=== PATIENT | female | born 1940 | race Caucasian/White ===

== ENCOUNTER 2018-11-28 07:25 | Inpatient (IN) ==
[2018-11-28] MEDS ORDERED: MYLANTA/LIDO VISC 2:1 300 ML BOTTLE SWISH/SWAL PRN (08:47)
[2018-11-28] MEDS ORDERED: diphenhydrAMINE CAP 25 MG CAPSULE PO PRN (08:47)
[2018-11-28] MEDS ORDERED: guaiFENesin 200 MG/10 ML UDCUP PO PRN (08:47)
[2018-11-28] MEDS ORDERED: PROMETHAZINE INJ 25 MG in SODIUM CHLORIDE 0.9% 50 ML IV PRN (08:47)
[2018-11-28] MEDS ORDERED: ONDANSETRON 4 MG/2 ML VIAL IV PRN (08:47)
[2018-11-28] MEDS ORDERED: MAGNESIUM HYDROXIDE SUSP 30 ML UDCUP PO PRN (08:47)
[2018-11-28] MEDS ORDERED: ALUMINUM/MAGNES/SIMETH MAX STR 30 ML UDCUP PO PRN (08:47)
[2018-11-28] MEDS ORDERED: ALPRAZolam 0.25 MG TABLET PO PRN (08:47)
[2018-11-28] MEDS ORDERED: ACETAMINOPHEN 325 MG TABLET PO PRN (08:47)
[2018-11-28] MEDS ORDERED: LACTULOSE 20 GM/30 ML UDCUP PO PRN (08:47)
[2018-11-28] MEDS ORDERED: MYLANTA/LIDO VISC 2:1 300 ML BOTTLE SWISH/SPIT PRN (08:47)
[2018-11-28] MEDS ORDERED: TEMAZEPAM 7.5 MG CAPSULE PO PRN (08:47)
[2018-11-28] MEDS ORDERED: LOPERAMIDE 2 MG CAPSULE PO PRN ×2 (08:47)
[2018-11-28] MEDS ORDERED: DEXAMETHASONE 4 MG TABLET PO SCH (09:00)
[2018-11-28] MEDS ORDERED: INFLUENZA VIRUS VACCINE 0.5 ML SYRINGE IM ONE (09:01)
[2018-11-28] MEDS ORDERED: PNEUMOCOCCAL VACCINE (13 VALENT) 0.5 ML SYRINGE IM ONE (09:01)
[2018-11-28 09:16] LABS: Eosinophils # 0.1 10*3/uL (0.0-0.87); Eosinophils % 4.3 % (0.00-10.9); Immature Granulocytes % 0.4 %; Immature Granulocytes Absolute 0.01 #; Lymphocytes # 0.9 10*3/uL (1.4-4.0); Lymphocytes % 34.4 % (21.3-54.2); Mean Corpuscular HGB Conc 33.3 GM/DL (32-36); Mean Corpuscular Volume 93.4 FL (87-102); Mean Platelet Volume 8.9 FL (9.6-12.0); Monocytes % 23.7 % (1.7-12.7); Neutrophils % 37.2 % (38.7-73.9); Platelet Count 122 T/CUMM (130-400); Red Blood Count 2.57 MC/CUMM (3.8-5.5); White Blood Count 2.5 T/CUMM (4-12)
[2018-11-28 09:35] LABS: Band Neutrophils 1 % (0-10); Eosinophils 5 % (0-10); Lymphocytes 30 % (20-55); Segmented Neutrophils 48 % (50-85); Total Cells Counted 100
[2018-11-28 09:36] LABS: Hypochromasia 1+; Ovalocytes Slight; Platelet Estimate Normal
[2018-11-28 09:44] LABS: Total Protein 6.5 G/DL (6.4-8.3)
[2018-11-28 09:46] LABS: Albumin 2.5 G/DL (3.4-5.0); Bilirubin,Total 0.4 MG/DL (0.2-1.0); Calcium 7.7 MG/DL (8.5-10.1); Osmolality,Calculated 274.7 MOS/KG (273-304); Total Protein 6.3 G/DL (6.4-8.3)
[2018-11-28] MEDS: FLUDROCORTISONE 0.1 MG TABLET PO SCH ×2 (09:52→21:33)
[2018-11-28] MEDS: MIDODRINE 2.5 MG TABLET PO SCH ×2 (09:53→21:33)
[2018-11-28] MEDS: DRONABINOL 2.5 MG CAPSULE PO SCH ×2 (09:56→21:45)
[2018-11-28 10:46] LABS: Immuno Free Light Chain Kappa 3.02 MG/DL (0.33-1.94)
[2018-11-28 10:47] LABS: Immuno Free Light Chain Lambda 13.81 MG/DL (0.57-2.63); Immuno Free Light Chain Ratio 0.22 MG/DL (0.26-1.65)
[2018-11-28] MEDS: POTASSIUM CHLORIDE 20 MEQ TABLET PO SCH (21:33)
[2018-11-29] MEDS: LEVOTHYROXINE 50 MCG TABLET PO SCH (07:16)
[2018-11-29] MEDS: DRONABINOL 2.5 MG CAPSULE PO SCH (09:32)
[2018-11-29] MEDS: POTASSIUM CHLORIDE 20 MEQ TABLET PO SCH ×2 (09:32→20:40)
[2018-11-29] MEDS: MIDODRINE 2.5 MG TABLET PO SCH ×2 (09:40→20:41)
[2018-11-29] MEDS: FLUDROCORTISONE 0.1 MG TABLET PO SCH ×2 (09:40→20:41)
[2018-11-29] MEDS ORDERED: SODIUM CHLORIDE 0.9% 1,000 ML IV PRN (10:28)
[2018-11-29] MEDS: MEGESTROL ES 125 MG/ML 30 ML/BOTTLE PO SCH (12:38)
[2018-11-29] MEDS: SIMVASTATIN 20 MG TABLET PO SCH (12:38)
[2018-11-29] MEDS: NIZATIDINE 150 MG PO SCH (20:41)
[2018-11-30] MEDS: LEVOTHYROXINE 50 MCG TABLET PO SCH (06:09)
[2018-11-30 06:32] LABS: Basophils # 0.1 10*3/uL (0.0-0.2); Basophils % 1.2 % (0.0-0.8); Eosinophils # 0.2 10*3/uL (0.0-0.87); Hematocrit 33.6 VOL% (35.7-47.0); Immature Granulocytes Absolute 0.42 #; Lymphocytes # 0.8 10*3/uL (1.4-4.0); Lymphocytes % 19.6 % (21.3-54.2); Mean Corpuscular HGB Conc 34.8 GM/DL (32-36); Mean Corpuscular Volume 88.2 FL (87-102); Mean Platelet Volume 10.2 FL (9.6-12.0); Monocytes % 13.4 % (1.7-12.7); NRBC # 0.05 10*3/uL; Neutrophils % 50.8 % (38.7-73.9); Platelet Count 130 T/CUMM (130-400)
[2018-11-30 06:46] LABS: Hemoglobin 11.7 GM/DL (12.0-16.0); Red Blood Count 3.81 MC/CUMM (3.8-5.5); White Blood Count 4.2 T/CUMM (4-12)
[2018-11-30 06:54] LABS: Calcium 7.1 MG/DL (8.5-10.1); Osmolality,Calculated 271.8 MOS/KG (273-304)
[2018-11-30 06:58] LABS: Band Neutrophils 4 % (0-10); Eosinophils 4 % (0-10); Hypochromasia 1+; Lymphocytes 23 % (20-55); Nucleated Red Blood Cells 1 (0-5); Platelet Estimate Normal; Segmented Neutrophils 53 % (50-85); Total Cells Counted 100
[2018-11-30] MEDS ORDERED: MAGNESIUM SULF RIDER 2 GM in PREMIX 1 EACH IV PRN (07:27)
[2018-11-30] MEDS ORDERED: MAGNESIUM SULF RIDER 4 GM in PREMIX 1 EACH IV PRN (07:27)
[2018-11-30] MEDS: MEGESTROL ES 125 MG/ML 30 ML/BOTTLE PO SCH (08:53)
[2018-11-30] MEDS: FLUDROCORTISONE 0.1 MG TABLET PO SCH ×2 (08:53→20:36)
[2018-11-30] MEDS: POTASSIUM CHLORIDE 20 MEQ TABLET PO SCH ×2 (08:53→20:36)
[2018-11-30] MEDS: MIDODRINE 2.5 MG TABLET PO SCH ×2 (08:53→20:36)
[2018-11-30] MEDS: SIMVASTATIN 20 MG TABLET PO SCH (08:53)
[2018-11-30] MEDS ORDERED: SIMVASTATIN 20 MG TABLET PO SCH (12:00)
[2018-11-30] MEDS: NIZATIDINE 150 MG PO SCH (20:36)
[2018-12-01] MEDS: LEVOTHYROXINE 50 MCG TABLET PO SCH (06:48)
[2018-12-01 07:34] LABS: Total Protein (Chem) 6.5 G/DL (6.4-8.3)
[2018-12-01 08:55] LABS: Albumin (SPE) 3.5 G/DL (3.2-5.3); Alpha 1 (SPE) 0.2 G/DL (0.1-0.4); Alpha 1 (SPE) Rel % 3.2 %; Alpha 2 (SPE) 1.1 G/DL (0.4-1.0); Alpha 2 (SPE) Rel % 16.2 %; Beta (SPE) 0.5 G/DL (0.5-1.1); Beta (SPE) Rel % 8.1 %; Gamma (SPE) 1.2 G/DL (0.7-1.7)
[2018-12-01 08:59] LABS: Gamma (SPE) Rel % 18.5 %
[2018-12-01] MEDS: POTASSIUM CHLORIDE 20 MEQ TABLET PO SCH ×2 (10:25→20:54)
[2018-12-01] MEDS: FLUDROCORTISONE 0.1 MG TABLET PO SCH ×2 (10:26→20:54)
[2018-12-01] MEDS: MIDODRINE 2.5 MG TABLET PO SCH ×2 (10:26→20:53)
[2018-12-01] MEDS: MEGESTROL ES 125 MG/ML 30 ML/BOTTLE PO SCH (10:31)
[2018-12-01] MEDS ORDERED: ceFAZolin 1,000 MG in SYRINGE 1 EACH IV ONE (11:33)
[2018-12-01] MEDS ORDERED: POTASSIUM CHLORIDE RIDER 10 MEQ in PREMIX 1 EACH IV PRN (15:31)
[2018-12-01] MEDS: POTASSIUM CHLORIDE RIDER 10 MEQ in PREMIX 1 EACH IV PRN ×4 (15:57→22:53)
[2018-12-01] MEDS: NIZATIDINE 150 MG PO SCH (20:54)
[2018-12-02] MEDS: DEXTROSE 5% LACTATED RINGERS 1,000 ML IV SCH ×3 (01:46→20:57)
[2018-12-02 04:50] LABS: Eosinophils # 0.1 10*3/uL (0.0-0.87); Eosinophils % 3.4 % (0.00-10.9); Hemoglobin 11.1 GM/DL (12.0-16.0); Immature Granulocytes Absolute 0.37 #; Lymphocytes % 23.5 % (21.3-54.2); Mean Corpuscular HGB Conc 34.7 GM/DL (32-36); Mean Corpuscular Volume 89.9 FL (87-102); Mean Platelet Volume 10.4 FL (9.6-12.0); Monocytes % 16.4 % (1.7-12.7); Neutrophils % 46.7 % (38.7-73.9); Platelet Count 133 T/CUMM (130-400); Red Blood Count 3.56 MC/CUMM (3.8-5.5); Red Cell Distribution Width 15.4 % (9.3-17.3); White Blood Count 4.1 T/CUMM (4-12)
[2018-12-02 05:26] LABS: Calcium 6.2 MG/DL (8.5-10.1); Osmolality,Calculated 279.3 MOS/KG (273-304)
[2018-12-02] MEDS: LEVOTHYROXINE 50 MCG TABLET PO SCH (05:41)
[2018-12-02] MEDS ORDERED: ceFAZolin 1,000 MG in SYRINGE 1 EACH IV ONE ×2 (06:00→06:30)
[2018-12-02 06:59] LABS: Band Neutrophils 10 % (0-10); Eosinophils 3 % (0-10); Lymphocytes 21 % (20-55); Metamyelocytes 1 %; Myelocytes 1 %; Segmented Neutrophils 52 % (50-85); Total Cells Counted 100
[2018-12-02 07:00] LABS: Hypochromasia 1+; Microcytosis Slight; Ovalocytes Slight
[2018-12-02 07:01] LABS: Platelet Estimate Adequate
[2018-12-02] MEDS ORDERED: BUPIVACAINE MPF 0.25% 30 ML VIAL ONE (07:36)
[2018-12-02] MEDS ORDERED: HEPARIN 5,000 UNIT/1 ML VIAL ONE (07:36)
[2018-12-02] MEDS ORDERED: TISSUE ADHESIVE 1 EACH APPLICATOR TOP ONE (07:37)
[2018-12-02] MEDS ORDERED: LIDOCAINE 1% 20 ML VIAL ONE (07:37)
[2018-12-02] MEDS ORDERED: LACTATED RINGERS 1,000 ML IV SCH (08:30)
[2018-12-02] MEDS ORDERED: MIDAZOLAM 2 MG/2 ML VIAL ONE (09:34)
[2018-12-02] MEDS ORDERED: KETAMINE 500 MG/10 ML VIAL ONE (09:34)
[2018-12-02] MEDS ORDERED: MAGNESIUM SULF RIDER 2 GM in PREMIX 1 EACH IV ONE (10:44)
[2018-12-02] MEDS ORDERED: MIDODRINE 2.5 MG TABLET PO SCH (10:46)
[2018-12-02] MEDS: METOPROLOL TARTRATE 25 MG TABLET PO SCH ×2 (11:33→20:55)
[2018-12-02] MEDS: FLUDROCORTISONE 0.1 MG TABLET PO SCH ×2 (11:35→20:54)
[2018-12-02] MEDS: POTASSIUM CHLORIDE 20 MEQ TABLET PO SCH ×2 (11:36→20:54)
[2018-12-02] MEDS: MEGESTROL ES 125 MG/ML 30 ML/BOTTLE PO SCH (11:42)
[2018-12-02] MEDS: POTASSIUM CHLORIDE RIDER 20 MEQ in PREMIX 1 EACH IV PRN ×2 (14:36→17:37)
[2018-12-02] MEDS: MIDODRINE 2.5 MG TABLET PO SCH ×3 (16:50→20:55)
[2018-12-02] MEDS: NIZATIDINE 150 MG PO SCH (20:55)
[2018-12-03 04:42] LABS: Basophils % 0.5 % (0.0-0.8); Eosinophils # 0.1 10*3/uL (0.0-0.87); Eosinophils % 2.9 % (0.00-10.9); Hematocrit 33.8 VOL% (35.7-47.0); Hemoglobin 11.3 GM/DL (12.0-16.0); Immature Granulocytes Absolute 0.15 #; Lymphocytes # 0.9 10*3/uL (1.4-4.0); Lymphocytes % 24.7 % (21.3-54.2); Mean Corpuscular HGB Conc 33.4 GM/DL (32-36); Mean Corpuscular Volume 92.3 FL (87-102); Mean Platelet Volume 10.2 FL (9.6-12.0); Monocytes % 23.1 % (1.7-12.7); Neutrophils % 44.8 % (38.7-73.9); Platelet Count 153 T/CUMM (130-400); Red Blood Count 3.66 MC/CUMM (3.8-5.5); Red Cell Distribution Width 15.6 % (9.3-17.3); White Blood Count 3.8 T/CUMM (4-12)
[2018-12-03 05:08] LABS: Band Neutrophils 1 % (0-10); Eosinophils 2 % (0-10); Lymphocytes 28 % (20-55); Platelet Estimate Adequate; Segmented Neutrophils 51 % (50-85); Total Cells Counted 100
[2018-12-03 05:09] LABS: Hypochromasia 1+; Microcytosis Slight
[2018-12-03 05:18] LABS: Calcium 6.5 MG/DL (8.5-10.1); Osmolality,Calculated 280.3 MOS/KG (273-304)
[2018-12-03] MEDS: LEVOTHYROXINE 50 MCG TABLET PO SCH (05:47)
[2018-12-03] MEDS: FLUDROCORTISONE 0.1 MG TABLET PO SCH ×2 (09:11→21:14)
[2018-12-03] MEDS: MEGESTROL ES 125 MG/ML 30 ML/BOTTLE PO SCH (09:12)
[2018-12-03] MEDS: MIDODRINE 2.5 MG TABLET PO SCH ×3 (09:12→21:16)
[2018-12-03] MEDS: METOPROLOL TARTRATE 25 MG TABLET PO SCH (09:12)
[2018-12-03] MEDS: POTASSIUM CHLORIDE 20 MEQ TABLET PO SCH ×2 (09:12→21:14)
[2018-12-03] MEDS: POTASSIUM CHLORIDE RIDER 20 MEQ in PREMIX 1 EACH IV PRN (09:12)
[2018-12-03] MEDS: DEXTROSE 5% LACTATED RINGERS 1,000 ML IV SCH (10:17)
[2018-12-03] MEDS: POTASSIUM CHLORIDE RIDER 10 MEQ in PREMIX 1 EACH IV PRN (11:20)
[2018-12-03] MEDS: BISOPROLOL 5 MG TABLET PO SCH ×2 (15:25→21:14)
[2018-12-03] MEDS: NIZATIDINE 150 MG PO SCH (21:15)
[2018-12-04] MEDS: DEXTROSE 5% LACTATED RINGERS 1,000 ML IV SCH (01:36)
[2018-12-04] MEDS: LEVOTHYROXINE 50 MCG TABLET PO SCH (05:40)
[2018-12-04] MEDS: POTASSIUM CHLORIDE 20 MEQ TABLET PO SCH (08:30)
[2018-12-04] MEDS: FLUDROCORTISONE 0.1 MG TABLET PO SCH (08:31)
[2018-12-04] MEDS: BISOPROLOL 5 MG TABLET PO SCH (08:31)
[2018-12-04] MEDS: MIDODRINE 2.5 MG TABLET PO SCH (08:31)
[2018-12-04] MEDS: MEGESTROL ES 125 MG/ML 30 ML/BOTTLE PO SCH (08:33)
[2018-12-04 09:27] VITALS: BP 147/84
== END 2018-12-04 11:05 | disposition home health service (06) | DRG 982 ==
LOC: N.4E
PROVIDERS: ADMIT Specialist; ATTEND Specialist

== ENCOUNTER 2019-02-11 15:00 | Inpatient (IN) ==
[2019-02-11 16:20] LABS: Basophils % 0.2 % (0.0-0.8); Eosinophils % 0.6 % (0.00-10.9); Hematocrit 28.6 VOL% (35.7-47.0); Hemoglobin 9.3 GM/DL (12.0-16.0); Immature Granulocytes % 2.9 %; Immature Granulocytes Absolute 0.15 #; Lymphocytes # 0.7 10*3/uL (1.4-4.0); Lymphocytes % 13.4 % (21.3-54.2); Mean Corpuscular HGB Conc 32.5 GM/DL (32-36); Mean Corpuscular Volume 99.7 FL (87-102); Monocytes % 10.5 % (1.7-12.7); Neutrophils % 72.4 % (38.7-73.9); Platelet Count 201 T/CUMM (130-400); Red Blood Count 2.87 MC/CUMM (3.8-5.5); Red Cell Distribution Width 17.3 % (9.3-17.3); White Blood Count 5.2 T/CUMM (4-12)
[2019-02-11 16:47] LABS: Bilirubin,Total 0.4 MG/DL (0.2-1.0); Calcium 8.7 MG/DL (8.5-10.1); Total Protein 6.5 G/DL (6.4-8.3)
[2019-02-11] MEDS ORDERED: AZITHROMYCIN INJ 500 MG in SODIUM CHLORIDE 0.9% 250 ML IV STA (17:19)
[2019-02-11] MEDS ORDERED: cefTRIAXone 1,000 MG in SODIUM CHLORIDE 0.9% 100 ML IV STA (17:19)
[2019-02-11] MEDS ORDERED: ACETAMINOPHEN 325 MG TABLET PO PRN (19:01)
[2019-02-11] MEDS ORDERED: ONDANSETRON 4 MG/2 ML VIAL IV PRN (19:01)
[2019-02-11] MEDS ORDERED: ALBUTEROL/IPRATROPIUM 3 ML NEB RESP TX PRN (19:01)
[2019-02-11] MEDS: SODIUM CHLORIDE 0.9% 1,000 ML IV SCH (21:12)
[2019-02-12 04:57] LABS: Basophils % 0.3 % (0.0-0.8); Eosinophils # 0.1 10*3/uL (0.0-0.87); Eosinophils % 1.3 % (0.00-10.9); Hemoglobin 7.3 GM/DL (12.0-16.0); Immature Granulocytes % 2.6 %; Lymphocytes # 1.3 10*3/uL (1.4-4.0); Lymphocytes % 33.9 % (21.3-54.2); Mean Corpuscular HGB Conc 33.2 GM/DL (32-36); Mean Corpuscular Volume 99.5 FL (87-102); Monocytes % 10.4 % (1.7-12.7); NRBC # 0.02 10*3/uL; Neutrophils % 51.5 % (38.7-73.9); Red Blood Count 2.21 MC/CUMM (3.8-5.5); Red Cell Distribution Width 17.3 % (9.3-17.3); White Blood Count 3.9 T/CUMM (4-12)
[2019-02-12 05:04] LABS: Platelet Count 148 T/CUMM (130-400)
[2019-02-12 05:13] LABS: Calcium 7.9 MG/DL (8.5-10.1); Osmolality,Calculated 285.1 MOS/KG (273-304)
[2019-02-12 06:14] LABS: Atypical Lymphocytes Few; Band Neutrophils 6 % (0-10); Eosinophils 3 % (0-10); Lymphocytes 24 % (20-55); Microcytosis Slight; Segmented Neutrophils 59 % (50-85); Total Cells Counted 100
[2019-02-12 06:15] LABS: Hypochromasia 1+; Tear Drop Cells Slight
[2019-02-12 07:36] LABS: Amorphous Crystals,Urine Occasional /HPF (Few); Apearance,Urine Slightly Hazy (Clear); Bacteria,Urine Occasional /HPF (Few); Bilirubin,Urine Negative (Negative); Blood, Urine Small mg/dL (Negative); Glucose,Urine (UA) Negative (Negative); Ketones,Urine Negative (Negative); Nitrite,Urine Negative (Negative); Protein,Urine 30 MG/DL; RBC,Urine 1 /HPF (0-4); Squamous Epithelial Cell,Urine Occasional /HPF (0-10); Urine Color Yellow (Yellow); Urine Specific Gravity 1.015 (1.001-1.035); Urine Urobilinogen < 2.0 EU/DL (0.2-1.0); WBC,Urine 20 /HPF (0-6)
[2019-02-12] MEDS: RANITIDINE 150 MG TABLET PO SCH (11:07)
[2019-02-12] MEDS: BISOPROLOL 5 MG TABLET PO SCH ×2 (11:07→21:46)
[2019-02-12] MEDS: CHOLECALCIFEROL 1,000 UNIT TABLET PO SCH (11:08)
[2019-02-12] MEDS: MAGNESIUM OXIDE 400 MG TABLET PO SCH ×2 (11:08→21:46)
[2019-02-12] MEDS ORDERED: ENOXAPARIN 40 MG/0.4 ML SYRINGE SUBCUT SCH (14:00)
[2019-02-12] MEDS: PANTOPRAZOLE 40 MG TABLET PO SCH (17:38)
[2019-02-12] MEDS: MEGESTROL ES 125 MG/ML 30 ML/BOTTLE PO SCH (17:38)
[2019-02-12] MEDS: CALCIUM CARBONATE CHEW 500 MG TABLET PO SCH ×2 (17:38→21:46)
[2019-02-12] MEDS: POTASSIUM BICARBONATE PO SCH ×2 (17:41→21:15)
[2019-02-12] MEDS: CITRIC ACID PO SCH ×2 (17:41→21:15)
[2019-02-12] MEDS ORDERED: AZITHROMYCIN INJ 500 MG in SODIUM CHLORIDE 0.9% 250 ML IV SCH (19:30)
[2019-02-12] MEDS: GABAPENTIN 300 MG CAPSULE PO SCH (21:46)
[2019-02-12] MEDS: cefTRIAXone 1,000 MG in SYRINGE 1 EACH IV SCH (21:50)
[2019-02-12] MEDS: ENOXAPARIN 40 MG/0.4 ML SYRINGE SUBCUT SCH (21:52)
[2019-02-13 05:22] LABS: Basophils % 0.3 % (0.0-0.8); Eosinophils # 0.1 10*3/uL (0.0-0.87); Eosinophils % 1.6 % (0.00-10.9); Hematocrit 22.6 VOL% (35.7-47.0); Hemoglobin 7.3 GM/DL (12.0-16.0); Immature Granulocytes % 2.7 %; Lymphocytes # 1.2 10*3/uL (1.4-4.0); Lymphocytes % 32.8 % (21.3-54.2); Mean Corpuscular HGB Conc 32.3 GM/DL (32-36); Mean Corpuscular Volume 101.8 FL (87-102); Mean Platelet Volume 10.4 FL (9.6-12.0); NRBC # 0.03 10*3/uL; Neutrophils % 53.6 % (38.7-73.9); Platelet Count 154 T/CUMM (130-400); Red Blood Count 2.22 MC/CUMM (3.8-5.5); Red Cell Distribution Width 17.6 % (9.3-17.3); White Blood Count 3.7 T/CUMM (4-12)
[2019-02-13 05:49] LABS: Calcium 7.3 MG/DL (8.5-10.1); Osmolality,Calculated 288.7 MOS/KG (273-304)
[2019-02-13] MEDS: LEVOTHYROXINE 50 MCG TABLET PO SCH (06:29)
[2019-02-13] MEDS: SODIUM CHLORIDE 0.9% 1,000 ML IV SCH ×3 (08:41→12:03)
[2019-02-13] MEDS: AZITHROMYCIN 250 MG TABLET PO SCH (08:43)
[2019-02-13] MEDS: MAGNESIUM OXIDE 400 MG TABLET PO SCH ×2 (08:43→20:37)
[2019-02-13] MEDS: CALCIUM CARBONATE CHEW 500 MG TABLET PO SCH ×3 (08:43→20:38)
[2019-02-13] MEDS: BISOPROLOL 5 MG TABLET PO SCH ×2 (08:43→20:37)
[2019-02-13] MEDS: POTASSIUM BICARBONATE PO SCH ×2 (08:44→20:45)
[2019-02-13] MEDS: CITRIC ACID PO SCH ×2 (08:44→20:45)
[2019-02-13] MEDS: CHOLECALCIFEROL 1,000 UNIT TABLET PO SCH (08:44)
[2019-02-13] MEDS: MEGESTROL ES 125 MG/ML 30 ML/BOTTLE PO SCH (08:44)
[2019-02-13] MEDS: PANTOPRAZOLE 40 MG TABLET PO SCH (08:44)
[2019-02-13] MEDS: RANITIDINE 150 MG TABLET PO SCH (08:46)
[2019-02-13] MEDS ORDERED: SODIUM CHLORIDE 0.9% 1,000 ML IV PRN (14:22)
[2019-02-13] MEDS: cefTRIAXone 1,000 MG in SYRINGE 1 EACH IV SCH (20:36)
[2019-02-13] MEDS: GABAPENTIN 300 MG CAPSULE PO SCH (20:37)
[2019-02-13] MEDS: ENOXAPARIN 40 MG/0.4 ML SYRINGE SUBCUT SCH (20:38)
[2019-02-14 06:12] LABS: Eosinophils # 0.1 10*3/uL (0.0-0.87); Eosinophils % 1.8 % (0.00-10.9); Hematocrit 29.2 VOL% (35.7-47.0); Hemoglobin 9.4 GM/DL (12.0-16.0); Immature Granulocytes % 3.6 %; Immature Granulocytes Absolute 0.12 #; Lymphocytes # 0.9 10*3/uL (1.4-4.0); Lymphocytes % 25.7 % (21.3-54.2); Mean Corpuscular HGB Conc 32.2 GM/DL (32-36); Mean Platelet Volume 9.8 FL (9.6-12.0); NRBC # 0.05 10*3/uL; Neutrophils % 58.9 % (38.7-73.9); Platelet Count 139 T/CUMM (130-400); Red Blood Count 2.98 MC/CUMM (3.8-5.5); Red Cell Distribution Width 18.6 % (9.3-17.3); White Blood Count 3.3 T/CUMM (4-12)
[2019-02-14] MEDS: LEVOTHYROXINE 50 MCG TABLET PO SCH (06:30)
[2019-02-14] MEDS: SODIUM CHLORIDE 0.9% 1,000 ML IV SCH ×2 (06:30→20:31)
[2019-02-14 06:44] LABS: Calcium 7.3 MG/DL (8.5-10.1); Osmolality,Calculated 287.7 MOS/KG (273-304)
[2019-02-14] MEDS: RANITIDINE 150 MG TABLET PO SCH (09:50)
[2019-02-14] MEDS: CITRIC ACID PO SCH ×2 (09:51→20:25)
[2019-02-14] MEDS: POTASSIUM BICARBONATE PO SCH ×2 (09:51→20:25)
[2019-02-14] MEDS: MAGNESIUM OXIDE 400 MG TABLET PO SCH ×2 (09:52→20:23)
[2019-02-14] MEDS: BISOPROLOL 5 MG TABLET PO SCH ×2 (09:52→20:24)
[2019-02-14] MEDS: CHOLECALCIFEROL 1,000 UNIT TABLET PO SCH (09:52)
[2019-02-14] MEDS: AZITHROMYCIN 250 MG TABLET PO SCH (09:52)
[2019-02-14] MEDS: CALCIUM CARBONATE CHEW 500 MG TABLET PO SCH ×3 (09:52→20:24)
[2019-02-14] MEDS: PANTOPRAZOLE 40 MG TABLET PO SCH (09:53)
[2019-02-14] MEDS: MEGESTROL ES 125 MG/ML 30 ML/BOTTLE PO SCH (09:59)
[2019-02-14] MEDS: ENOXAPARIN 40 MG/0.4 ML SYRINGE SUBCUT SCH (20:23)
[2019-02-14] MEDS: GABAPENTIN 300 MG CAPSULE PO SCH (20:23)
[2019-02-14] MEDS: cefTRIAXone 1,000 MG in SYRINGE 1 EACH IV SCH (20:25)
[2019-02-15 05:15] LABS: Basophils % 0.5 % (0.0-0.8); Eosinophils # 0.1 10*3/uL (0.0-0.87); Eosinophils % 1.6 % (0.00-10.9); Hematocrit 30.4 VOL% (35.7-47.0); Hemoglobin 10.1 GM/DL (12.0-16.0); Immature Granulocytes % 3.9 %; Immature Granulocytes Absolute 0.15 #; Lymphocytes % 25.5 % (21.3-54.2); Mean Corpuscular HGB Conc 33.2 GM/DL (32-36); Mean Platelet Volume 10.3 FL (9.6-12.0); Monocytes % 10.7 % (1.7-12.7); NRBC # 0.02 10*3/uL; Neutrophils % 57.8 % (38.7-73.9); Platelet Count 148 T/CUMM (130-400); Red Cell Distribution Width 18.3 % (9.3-17.3); White Blood Count 3.8 T/CUMM (4-12)
[2019-02-15 05:48] LABS: Calcium 7.3 MG/DL (8.5-10.1)
[2019-02-15] MEDS: LEVOTHYROXINE 50 MCG TABLET PO SCH (06:30)
[2019-02-15] MEDS: CALCIUM CARBONATE CHEW 500 MG TABLET PO SCH ×3 (08:55→20:49)
[2019-02-15] MEDS: CHOLECALCIFEROL 1,000 UNIT TABLET PO SCH (08:56)
[2019-02-15] MEDS: AZITHROMYCIN 250 MG TABLET PO SCH (08:56)
[2019-02-15] MEDS: MAGNESIUM OXIDE 400 MG TABLET PO SCH ×2 (08:56→20:49)
[2019-02-15] MEDS: PANTOPRAZOLE 40 MG TABLET PO SCH (08:56)
[2019-02-15] MEDS: BISOPROLOL 5 MG TABLET PO SCH ×2 (08:56→20:49)
[2019-02-15] MEDS: POTASSIUM BICARBONATE PO SCH ×2 (08:59→20:49)
[2019-02-15] MEDS: RANITIDINE 150 MG TABLET PO SCH (08:59)
[2019-02-15] MEDS: CITRIC ACID PO SCH ×2 (08:59→20:49)
[2019-02-15] MEDS: SODIUM CHLORIDE 0.9% 1,000 ML IV SCH (09:00)
[2019-02-15] MEDS: MEGESTROL ES 125 MG/ML 30 ML/BOTTLE PO SCH (09:01)
[2019-02-15] MEDS ORDERED: guaiFENesin 200 MG/10 ML UDCUP PO PRN (11:16)
[2019-02-15] MEDS: ENOXAPARIN 40 MG/0.4 ML SYRINGE SUBCUT SCH (20:48)
[2019-02-15] MEDS: cefTRIAXone 1,000 MG in SYRINGE 1 EACH IV SCH (20:49)
[2019-02-15] MEDS: GABAPENTIN 300 MG CAPSULE PO SCH (20:49)
[2019-02-16] MEDS: LEVOTHYROXINE 50 MCG TABLET PO SCH (06:16)
[2019-02-16] MEDS: PANTOPRAZOLE 40 MG TABLET PO SCH (09:13)
[2019-02-16] MEDS: MAGNESIUM OXIDE 400 MG TABLET PO SCH (09:13)
[2019-02-16] MEDS: CALCIUM CARBONATE CHEW 500 MG TABLET PO SCH (09:13)
[2019-02-16] MEDS: AZITHROMYCIN 250 MG TABLET PO SCH (09:13)
[2019-02-16] MEDS: BISOPROLOL 5 MG TABLET PO SCH (09:13)
[2019-02-16] MEDS: CHOLECALCIFEROL 1,000 UNIT TABLET PO SCH (09:14)
[2019-02-16] MEDS: MEGESTROL ES 125 MG/ML 30 ML/BOTTLE PO SCH (09:14)
[2019-02-16] MEDS: RANITIDINE 150 MG TABLET PO SCH (09:14)
[2019-02-16] MEDS: CITRIC ACID PO SCH (10:00)
[2019-02-16] MEDS: POTASSIUM BICARBONATE PO SCH (10:00)
[2019-02-16 11:53] VITALS: BP 106/71
== END 2019-02-16 13:56 | disposition home health service (06) | DRG 194 ==
LOC: N.ED 15:00 → SUATTDRO 19:02 → N.EDINP 19:02 → N.4E 19:29
PROVIDERS: ADMIT Internal Medicine; ATTEND Internal Medicine